=== PATIENT | female | born 1955 | race Caucasian/White ===

== ENCOUNTER → 2019-01-04 11:20 | Outpatient (CLI) | payer MEDICARE | END | disposition home or self-care (01) | LOC: D.CT 11:20 | DX: I67.1 Cerebral aneurysm, nonruptured (principal) ==

== ENCOUNTER → 2021-04-11 13:29 | Outpatient (CLI) | payer MEDICARE | END | disposition home or self-care (01) | LOC: D.RAD 13:29 | PROVIDERS: ATTEND Neurological Surgery | DX: M54.14 Radiculopathy, thoracic region (principal) ==

== ENCOUNTER → 2021-04-20 09:00 | Outpatient (CLI) | payer MEDICARE | END | disposition home or self-care (01) | LOC: D.RAD 04-13 09:00 | PROVIDERS: ATTEND Neurological Surgery | DX: M54.16 Radiculopathy, lumbar region (principal); M54.14 Radiculopathy, thoracic region; M54.12 Radiculopathy, cervical region ==

== ENCOUNTER 2021-04-24 13:13 | Inpatient (IN) | payer MEDICARE ==
[~2021-04-24] VITALS: Ht 162.6 cm; Wt 65.9 kg
[2021-04-24 14:15] LABS: BASOPHILS 0.9 % (0-2); EOSINOPHILS 1.1 % (0-7); HEMATOCRIT 42.2 % (36.0-48.0); HEMOGLOBIN 14.2 g/dL (12-16); LYMPHOCYTES 32.1 % (15-50); MCH 35.5 pg (26.0-34.0); MCHC 33.7 g/dL (31.0-37.0); MCV 105.3 fL (80.0-100.0); MEAN PLATELET VOLUME 7.3 fL (7.4-10.4); MONOCYTES 5.9 % (2-11); PLATELET COUNT 371 10x3/uL (130-400); RBC 4.01 10x6/uL (4.00-5.40); RDW 14.1 % (11.5-14.5); WBC 8.8 10x3/uL (4.8-10.8)
[2021-04-24 14:26] LABS: ANION GAP 17.6 mmol/L (8-16); CALCIUM 9.2 mg/dL (8.5-10.1); CARBON DIOXIDE 26.6 mmol/L (21.0-32.0); CREATININE - SERUM 0.9 mg/dL (0.6-1.3); POTASSIUM - SERUM 3.2 mmol/L (3.5-5.1)
[2021-04-24 14:27] LABS: INR 0.88 (0.85-1.17); PROTIME 11.1 SECONDS (11.6-15.0)
[2021-04-24 14:33] LABS: ALBUMIN 3.4 g/dL (3.4-5.0); BILIRUBIN - TOTAL 0.32 mg/dL (0.2-1.3); PROTEIN - SERUM 7.5 g/dL (6.4-8.2)
[2021-04-24 15:18] VITALS: BP 143/83
--- NOTE | 2021-04-24 15:40 | NUR ---
PT WITH LEFT LOWER EXTREMITY SWELLING AND PAIN FOR OVER A MONTH. VSS. IV STARTED IN LEFT ARM 22G. SHE IS ANXIOUS BUT SHE STATES THIS IS HER NORMAL IN UNKNOWN SITUATIONS. CALL LIGHT IN REACH.
--- NOTE | 2021-04-24 18:25 | NUR ---
REPORT GIVEN AND PT TRANSFERRED TO THE FLOOR. ALL QUESTIONS ANSWERED AND BELONGINGS SENT.
[2021-04-24] MEDS ORDERED: PERCOCET 10-321 EAC1 PO (18:39)
[2021-04-24] MEDS ORDERED: VALIUM10 MG PO (18:40)
[2021-04-24] MEDS ORDERED: ESTRACE 0.5 MG0.5 MG PO (18:42)
[2021-04-24] MEDS ORDERED: VITAMIN D 22000 UNIT PO (18:43)
[2021-04-24] MEDS ORDERED: PROBIOTIC1 EAC1 PO (18:45)
[2021-04-25] VITALS: BP 90/57
[2021-04-25 00:58] VITALS: Ht 162.6 cm; Wt 65.9 kg
[2021-04-25 04:00] VITALS: BP 95/54
[2021-04-25 08:23] VITALS: BP 98/57
[2021-04-25 08:34] LABS: BASOPHILS 0.2 % (0-2); EOSINOPHILS 2.1 % (0-7); HEMATOCRIT 36.8 % (36.0-48.0); HEMOGLOBIN 12.3 g/dL (12-16); LYMPHOCYTES 49.2 % (15-50); MCH 35.5 pg (26.0-34.0); MCHC 33.5 g/dL (31.0-37.0); MEAN PLATELET VOLUME 7.4 fL (7.4-10.4); MONOCYTES 8.2 % (2-11); NEUTROPHILS 40.3 % (40-80); PLATELET COUNT 326 10x3/uL (130-400); RBC 3.47 10x6/uL (4.00-5.40); RDW 14.1 % (11.5-14.5)
--- NOTE | 2021-04-25 08:36 | NUR ---
ASSESSMENT PER FLOW SHEET. PATIENT IS WITHOUT DISTRESS. PAIN 10/10 TO BACK. PATIENT STATES THIS IS CHRONIC.PATIENT STATES PAIN IN LLE COMES AND GOES.CALL LIGHT IN REACH
[2021-04-25 08:57] LABS: ANION GAP 9.7 mmol/L (8-16); CALCIUM 8.5 mg/dL (8.5-10.1); CARBON DIOXIDE 30.7 mmol/L (21.0-32.0); CHOL - HDL RATIO 2.3 ratio (2.3-4.1); LDL-HDL RATIO 1.1 ratio (1.5-3.5); POTASSIUM - SERUM 3.4 mmol/L (3.5-5.1)
[2021-04-25 12:09] VITALS: BP 111/75
[2021-04-25 17:02] VITALS: BP 109/70
[2021-04-25 20:00] VITALS: BP 110/67
--- NOTE | 2021-04-26 03:10 | NUR ---
PATIENT REQUESTING PAIN MEDICATION, STATES PAIN IS AT A 10 IN BACK. SHE ALSO WOULD LIKE TO SPEAK TO DR PEPE, WILL RELAY MESSAGE TO DAY NURSE, NO OTHER NEEDS AT THIS TIME. CONTINUE WITH PLAN OF CARE
[2021-04-26 04:00] VITALS: BP 97/57
--- NOTE | 2021-04-26 08:19 | EC ---
PATIENT:JENNY VASQUEZ DATE OF SERVICE: 04/24/21 SEX: F MEDICAL RECORD: [id number] DATE OF : 57 LOCATION:[facility] AGE OF PATIENT: 65 ADMISSION DATE: 04/24/21 REFERRING PHYSICIAN: INTERPRETING PHYSICIAN: RELL BAINS MD ECHOCARDIOGRAM REPORT ECHO CHARGES 4 ECHO COMPLETE Date: 04/25/21 CLINICAL DIAGNOSIS: ELEVATED BNP, DVT ECHOCARDIOGRAPHIC MEASUREMENTS (adult normal given) AC root (d.<3.7cm) 2.9 cm LV Septum d (<1.2 cm> 0.8 cm Valve Excursion 1.4 cm LV Septum (systole) 1.2 cm Left Atria (s.<4.0cm> 3.3 cm LVPW d(<1.2cm) 0.9 cm RV (d.<2.3cm) 2.6 cm LVPW (sytole) 1.0 cm LV diastole(<5.6CM) 5.1 cm MV E-F(>70mm/sec) cm LV systole 4.1 cm LVOT Diameter 1.8 cm MV exc.(>10mm) 1.1 cm Est.ejection fraction (50-75%) % DOPPLER: LVIT cm/sec A 80 cm/sec E 104 cm/sec LA cm/sec RVSP 20 mmHg LVOT 135 cm/sec AOP1/2T m/s Asc. Ao 138 cm/sec RVOT 59 cm/sec RA cm/sec PA 64 cm/sec AV Gradient Peak 6.6 mmHg AV Mean 3.5 mmHg AV Area 2.5 cm MV Gradient Peak 4.4 mmHg MV Mean 2.9 mmHg MV Area cm COMMENTS: Unattended Ground Sensor Specialist: Jono CALZADA Tool Lapper Hand: 3 Dr. Oliva TAPE# Pericardial Effusion N DATE OF SERVICE: Adequate 2D, color flow imaging, spectral Doppler, and M-Mode. No LVH. LV internal dimensions are normal. Wall motion normal. EF greater than or equal to 55%. Aortic valve is sclerotic. No evidence of stenosis by Doppler interrogation. Left atrium is normal at 3.3 cm. Mitral valve shows no prolapse. Trace MR. Right-sided chambers are grossly normal. Trace TR. TRANSINT:[id number] Voice Confirmation ID: [id number] DOCUMENT ID: [id number] ECHOCARDIOGRAM REPORT [id number] JENNY VASQUEZ RELL BAINS MD at 0819 CC: [id number] DICTATION DATE: 04/25/21 1644 BLACK TOP RAKER: 04/26/21 0009 ADM IN [place] [id number] [place] [address]
[2021-04-26 08:51] VITALS: BP 110/80
[2021-04-26 11:00] VITALS: BP 110/65
[2021-04-26 20:39] VITALS: BP 90/56
[2021-04-27 08:00] VITALS: BP 115/73
[2021-04-27] MEDS ORDERED: XARELTO15 MG PO (09:10)
--- NOTE | 2021-04-27 09:23 | NUR ---
ASSESSMENT PER FLOW SHEET. PATIENT IS WITHOUT DISTRESS.CALL LIGHT IN REACH.MONITOR FOR NEEDS.
--- NOTE | 2021-04-27 11:21 | MORECARE ---
CASE MANAGEMENT DISCHARGE SUMMARY PATIENT: JENNY VASQUEZ UNIT: [id number] ADM DATE: 04/24/21 AGE: 65 : 57 SEX: F ROOM/BED: D.2220 AUTHOR: VAIBHAVDOC PHYSICIAN: REFERRING PHYSICIAN: CYNDEE PEPE MD DATE OF SERVICE: 04/27/21 Case Management Discharge Planning Summary DCP REVIEW SUMMARY ANTICIPATED D/C DATE: EXPECTED LOS : CASE STATUS: DCP Initiated INITIAL REVIEW: 04/24/2021 INITIAL REVIEWER: Paige Dc FINAL DISCHARGE DISPOSITION: 01 : Home or Self Care (Routine Discharge) FINAL REVIEWER: FINAL REVIEW DATE: DCP Focus Questions & Answers QUESTION: ANSWER : PATIENT: JENNY VASQUEZ ENCOUNTER: [id number] MEDICAL RECORD#: [id number] ADMISSION DATE: 04/24/2021 DISCHARGE DATE: ATTENDING MD: CYNDEE BARRAZA : AGE: 65 MARITAL STATUS: W DC PLAN ID: [id number] FACILITY: [facility] PRINTED ON: 04/27/21 11:21 CT All edits/amendments must be made on the electronic document DICTATION DATE: 04/27/21 112 RESEARCH COORDINATOR: VANI 04/27/21 1121 RPT#: [id number] DC DATE: STATUS: ADM IN [facility] [address] [place] [address] END OF REPORT
--- NOTE | 2021-04-27 11:34 | MORECARE ---
CASE MANAGEMENT DISCHARGE SUMMARY PATIENT: JENNY VASQUEZ UNIT: [id number] ADM DATE: 04/24/21 AGE: 65 : 56 SEX: F ROOM/BED: D.2220 AUTHOR: PRANEETH ESPOSITO PHYSICIAN: REFERRING PHYSICIAN: CYNDEE PEPE MD DATE OF SERVICE: 04/27/21 Case Management Discharge Planning Summary COMMENTS ENTERED DATE: 04/27/21 11:32 CT COMMENT TYPE: Discharge Planning REVIEWER: Paige Dc IMM SERVED AND EXPLAINED ENTERED DATE: 04/27/21 11:16 CT COMMENT TYPE: Discharge Planning REVIEWER: Paige Dc CM met with patient to complete initial dc planning assessment. CM educated patient on the CM role and verbal consent given by patient to complete assessment. Patient lives at home by herself where she states she is independent with her care. At discharge patient plans to return home and feels this is a safe discharge. She plans on driving herself home and feels safe to do that. She said she has 2 son's who will help her if needed. She does not use any dme and did not think she needed any. She is a patient of Dr Singleton's and uses [facility] pharmacy. CM discussed availability of home health, rehab services, and medical equipment. She was instructed that she needed to stay home and not to the bars with her friends. Patient denied known discharge needs at this time. CM will continue to follow and will assist as needed with dc plans/needs. DCP REVIEW SUMMARY ANTICIPATED D/C DATE: EXPECTED LOS : CASE STATUS: DCP Initiated INITIAL REVIEW: 04/24/2021 INITIAL REVIEWER: Paige Dc FINAL DISCHARGE DISPOSITION: 01 : Home or Self Care (Routine Discharge) FINAL REVIEWER: FINAL REVIEW DATE: DCP Focus Questions & Answers QUESTION: ANSWER : PATIENT: JENNY VASQUEZ ENCOUNTER: [id number] MEDICAL RECORD#: [id number] ADMISSION DATE: 04/24/2021 DISCHARGE DATE: ATTENDING MD: CYNDEE BARRAZA : AGE: 65 MARITAL STATUS: W DC PLAN ID: [id number] FACILITY: [facility] PRINTED ON: 04/27/21 11:33 CT All edits/amendments must be made on the electronic document DICTATION DATE: 04/27/211132 LAND ACQUISITION ANALYST: VANI 04/27/211132 RPT#: [id number] DC DATE: STATUS: ADM IN [facility] [address] [place] [address] END OF REPORT
--- NOTE | 2021-04-27 13:03 | NUR ---
iv dcd with cath tip intact. skin tear to arm while removing tape.left wrist nickel sized
--- NOTE | 2021-04-27 13:04 | NUR ---
left unit via wheelchair for transport home
== END 2021-04-27 13:12 | disposition home or self-care (01) | DRG 301 ==
LOC: D.ER 13:13 → D.MS 16:48
PROVIDERS: Emergency Medicine; ADMIT Legal Medicine; ATTEND Legal Medicine
DX: I82.402 Acute embolism and thrombosis of unspecified deep veins of left lower extremity (principal); F41.9 Anxiety disorder, unspecified; R60.9 Edema, unspecified; J45.909 Unspecified asthma, uncomplicated; E87.6 Hypokalemia